=== PATIENT | female | born 1970 | race Caucasian/White ===

== ENCOUNTER 2020-02-24 10:20 | Outpatient (CLI) | payer BC, SELFPAY ==
--- NOTE | ~2020-02-24 | US_ITS ---
EXAMINATION: US thyroid DATE: 02/24/2020 10:46 INDICATION: Thyroid cancer. TECHNIQUE: Multiple ultrasound images of the thyroid were obtained. COMPARISON: Ultrasound 10/24/2013 FINDINGS: The thyroid is absent. There is no abnormal tissue in the thyroidectomy bed. There are no pathologica lly enlarged lymph nodes. IMPRESSION: 1. Thyroidectomy. Reviewed, dictated and finalized at location B. [facility] SERVICE SPECIALIST IMPRESSION: 1. Thyroidectomy.
== END 2020-02-24 10:21 | disposition home or self-care (01) ==
PROVIDERS: Visit Provider Internal Medicine Endocrinology, Diabetes & Metabolism
DX: C73 Malignant neoplasm of thyroid gland (principal); E89.0 Postprocedural hypothyroidism
CPT/HCPCS: 76536